=== PATIENT | female | born 1950 | race Caucasian/White ===

== ENCOUNTER → 2016-08-06 16:54 | Outpatient (CLI) | payer MEDICARE, OTHER ==
[2011-10-29 09:17] VITALS: BMI 25.8
== END | disposition home or self-care (01) ==
LOC: D.MAMMO 08:00
DX: Z12.31 Encounter for screening mammogram for malignant neoplasm of breast (principal)

== ENCOUNTER → 2016-09-06 10:39 | Outpatient (CLI) | payer MEDICARE, OTHER ==
[2011-10-29 09:17] VITALS: BMI 25.8
[2016-09-06 11:18] LABS: ANION GAP 11.1 mmol/L (8-16); CALCIUM 9.2 mg/dL (8.5-10.1); CARBON DIOXIDE 28.8 mmol/L (21.0-32.0); CREATININE - SERUM 1.2 mg/dL (0.6-1.3); POTASSIUM - SERUM 4.9 mmol/L (3.5-5.1)
== END | disposition home or self-care (01) ==
LOC: D.LAB 10:39 → D.MRI 11:30
PROVIDERS: Family Medicine
DX: R42 Dizziness and giddiness (principal)

== ENCOUNTER → 2016-12-02 15:00 | Outpatient (CLI) | payer MEDICARE, OTHER ==
[2011-10-29 09:17] VITALS: BMI 25.8
[~2016-12-02 15:00] MED LIST: AVAPRO300 MG PO; CYMBALTA60 MG PO; DEXILANT60 MG PO; DURAGESIC1 PATCH .7 TRANSDERM; FUROSEMIDE20 MG PO; INSULIN PUMP; PEPCID20 MG PO; PLAVIX75 MG PO; SYNTHROID175 MCG PO; VALIUM5 MG PO; VITAMIN D31000 UNI2 PO
[2016-12-03 14:54] VITALS: BMI 25.7
== END | disposition home or self-care (01) ==
LOC: D.US 15:00
DX: I65.23 Occlusion and stenosis of bilateral carotid arteries (principal)

== ENCOUNTER → 2016-12-03 13:32 | Outpatient (CLI) | payer MEDICARE, OTHER ==
[~2016-12-03] VITALS: Ht 160 cm; Wt 65.9 kg
[2016-12-03 14:54] VITALS: Ht 160 cm; Wt 65.9 kg
--- NOTE | 2016-12-03 14:59 | NUR ---
IV SITED IN LEFT HAND WITH #24 GAUGE PER MELANIA IYER, ATTEMPT X 2. RECLAST INFUSION EXPLAINED AND BEGUN.
--- NOTE | 2016-12-03 15:56 | NUR ---
RECLAST INFUSION COMPLETED. PT TOLERATED WELL. IV D/C'D CATH INTACT.
--- NOTE | 2016-12-03 15:57 | NUR ---
D/C INSTRUCTIONS EXPLAINED TO PT, WELL DRUG INFO SHEET FOR RECLAST. PT D/C'D HOME AMBULATORY, ALERT, CHEERFUL DEMEANOR.
== END | disposition home or self-care (01) ==
LOC: D.OPS 11-27 14:00
DX: M81.0 Age-related osteoporosis without current pathological fracture (principal)

== ENCOUNTER 2017-02-08 18:48 | Emergency (ER) | payer MEDICARE, OTHER ==
[2016-12-03 14:54] VITALS: BMI 25.7
[2017-02-08 19:21] LABS: BASOPHILS 0.2 % (0-2); EOSINOPHILS 1.1 % (0-7); HEMATOCRIT 36.2 % (36.0-48.0); HEMOGLOBIN 11.5 g/dL (12-16); IMMATURE GRANULOCYTES 0.2 % (0-5); LYMPHOCYTES 8.3 % (15-50); MCH 30.1 pg (26.0-34.0); MCHC 31.8 g/dL (31.0-37.0); MCV 94.8 fL (80.0-100.0); MEAN PLATELET VOLUME 10.6 fL (7.4-10.4); MONOCYTES 3.7 % (2-11); NEUTROPHILS 86.5 % (40-80); PLATELET COUNT 223 10x3/uL (130-400); RBC 3.82 10x6/uL (4.00-5.40); RDW 12.7 % (11.5-14.5); WBC 9.4 10x3/uL (4.8-10.8)
[2017-02-08 19:47] LABS: ALBUMIN 3.5 g/dL (3.4-5.0); ALKALINE PHOSPHATASE 78 U/L (46-116); ALT (SGPT) 18 U/L (10-68); BILIRUBIN - TOTAL 0.48 mg/dL (0.2-1.3); CALCIUM 9.7 mg/dL (8.5-10.1); CARBON DIOXIDE 22.6 mmol/L (21.0-32.0); CHLORIDE - SERUM 96 mmol/L (98-107); CHOL - HDL RATIO 2.5 ratio (2.3-4.1); CHOLESTEROL, TOTAL 141 mg/dL (0-200); CKMB 4.7 U/L (0.0-3.6); CREATINE KINASE 171 UL (21-215); CREATININE - SERUM 1.7 mg/dL (0.6-1.3); HDL CHOLESTEROL 57 mg/dL (32-96); LDL CHOLESTEROL 73 mg/dL (0-100); LDL-HDL RATIO 1.3 ratio (1.5-3.5); POTASSIUM - SERUM 5.5 mmol/L (3.5-5.1); PROTEIN - SERUM 6.9 g/dL (6.4-8.2); SODIUM 130 mmol/L (136-145); TRIGLYCERIDE 57 mg/dL (30-200); TROPONIN-I 0.022 ng/mL (0.000-0.060); UREA NITROGEN 35 mg/dL (7-18); eGFR NON AFRICAN AMERICAN 32 mL/min (90-120)
[2017-02-08 19:52] LABS: CALC OSMOLALITY 295 mosm/kg (275-300); GLUCOSE 581 mg/dL (74-106)
== END 2017-02-08 22:39 | disposition home or self-care (01) ==
LOC: D.ER 18:48
PROVIDERS: Emergency Medicine
DX: I20.8 Other forms of angina pectoris (principal); E16.2 Hypoglycemia, unspecified; K59.03 Drug induced constipation; T40.605A Adverse effect of unspecified narcotics, initial encounter; Y92.029 Unspecified place in mobile home as the place of occurrence of the external cause; I44.4 Left anterior fascicular block

== ENCOUNTER 2017-07-21 11:23 | Inpatient (IN) | payer MEDICARE, OTHER ==
[~2017-07-21] VITALS: Ht 160 cm; Wt 66.6 kg
--- NOTE | ~2017-07-21 | HEMODYNAMI ---
PATIENT:RAYMOND KIM MEDICAL RECORD: [id number] : 46 [id number] ADMISSION DATE: 07/21/17 Generatedon:07/23/201713:19 Patient name: RAYMOND KIM Patient #: [id number] SSN: : 1950 Date of study: 07/23/2017 Page: Of Hemodynamic Procedure Report Patient Data Patient Demographics Procedure consent was obtained First Name: RAYMOND Gender: Female Last Name: JUDY : 1950 [facility] Initial: SAQIB Age: 67 year(s) Patient #: [id number] Race: Unknown Additional ID: [id number] Contact details Address: [address] [place] [address] [address] [place] [facility] Zip code: [address] Past Medical History Allergies Allergen Reaction Date Comments Reported Penicillins 07/23/2017 Other allergy 07/23/2017 Pratamine, pravachol, persantin, bactrim, novolog Admission Admission Data Admission Date: 07/21/2017 Admission Time: 17:33 Room #: D.2134 Procedure Procedure Types Cath Procedure Diagnostic Procedure LHC LHC w/Coronaries w/Grafts Sedation Charges Moderate Sedation up to 15 minutes PCI Procedure AMI/SVG/HISTORIC SITES SUPERVISOR PTCA or Stent SVG-BMS/NIKO Initial Peripheral Cath Diagnostic Procedure Cath Peripheral Renal Arteriogram Procedure Description Procedure Date Procedure Date: 07/23/2017 Procedure Start Time: 12:53 Procedure End Time: 13:15 Procedure Staff Name Function Jean Claude Danielle MD Performing Physician Hanny Cheatham RT Monitor Brittani Smith RN Nurse Keny Shabazz RT Scrub Ned Casey RN Nurse Procedure Data Cath Procedure Fluoroscopy Diagnostic fluoroscopy Total fluoroscopy Time: 4.2 time: 4.2 min min Diagnostic fluoroscopy Total fluoroscopy dose: 453 dose: 453 mGy mGy Contrast Material Contrast Material Type Amount (ml) Isovue 300 101 Entry Location Entry Primary Successful Side Size Upsize Upsize Entry Closure Succes sful Closure Location (Fr) 1 (Fr) 2 (Fr) Remarks Device Remarks Femoral Right 5 Fr Exoseal artery Estimated blood loss: 10 ml Diagnostic catheters Device Type Used For End Catheter Placement MULTIPACK Pigtail 5 Fr LV Angiography catheter MULTIPACK JL 4.0 5Fr Left Coronary catheter Angiography DIAGNOSTIC JL 3.5 5Fr Left Coronary catheter ([id number]) Angiography MULTIPACK 3DRC 5Fr Internal mammary catheter arteriography MULTIPACK 3DRC 5Fr Right Coronary catheter Angiography DIAGNOSTIC AR 2 MOD 5 Fr SVG Angiography catheter ([id number]) DIAGNOSTIC AR 2 MOD 5 Fr SVG Angiography catheter ([id number]) MULTIPACK 3DRC 5Fr Renal catheter arteriography without flush -selective Procedure Complications No complications Procedure Medications Medication Administration Route Dosage Oxygen etCO2 Nasal cannula 2 l/min Phenergan 25 mg Heparin Flush Bag (1000units/500ml NS) 0.9% NaCl I.V. 100 ml/hr Fentanyl I.V. 50 mcg Versed I.V. 1 mg Fentanyl I.V. 50 mcg Versed I.V. 1 mg Zofran I.V. 4 mg Heparin Bolus I.V. 4000 units Hemodynamics Rest Heart Rate: 75 (bpm) Snapshots Pre Cath Intra NCS Post Cath Vital Signs Time Heart Resp SPO2 etCO2 NIBP (mmHg) Rhythm Pain Sedation Rate (ipm) (%) (mmHg) Status Level (bpm) 12:36:42 83 17 98 0 149/59(111) NSR 0 (11) 10(A) , No pain 12:41:32 86 16 100 33.1 150/56(100) NSR 0 (11) 10(A) , No pain 12:46:21 70 18 100 33.1 145/50(93) NSR 0 (11) 10(A) , No pain 12:51:06 69 16 100 21 129/49(96) NSR 0 (11) 10(A) , No pain 12:55:51 77 17 97 0 114/44(81) NSR 0 (11) 9(A) , No pain 13:00:34 67 14 100 30.1 115/51(83) NSR 0 (11) 9(A) , No pain 13:05:18 73 15 100 25.5 115/47(86) NSR 0 (11) 9(A) , No pain 13:10:01 68 16 100 15.8 123/50(86) NSR 0 (11) 9(A) , No pain 13:14:45 64 15 100 28.5 111/48(87) NSR 0 (11) 9(A) , No pain Medications Time Medication Route Dose Verified Delivered Reason Notes Effectiveness by by 12:41:51 Oxygen etCO2 2 Jean Claude Marino Per physician Nasal l/min Shashi Casey RN cannula 12:42:18 Phenergan I M 25 mg Jean Claude Peter for nausea Shashi Smith RN 12:42:55 Heparin Flush Jean Claude Marino Bag Shashi Casey RN (1000units/500ml NS) 12:43:22 0.9% NaCl I.V. 100 Jean Claude Marino Per physician ml/hr Shashi Casey RN 12:52:45 Fentanyl I.V. 50 Jean Claude Goy for sedation mcg Shashi Casey RN 12:52:51 Versed I.V. 1 mg Jean Claude Marino for sedation Shashi Casey RN 12:55:32 Fentanyl I.V. 50 Jean Claude Marino for sedation mcg Shashi Casey RN 12:55:35 Versed I.V. 1 mg Jean Claude Marino for sedation Shashi Casey RN 13:04:18 Heparin Bolus I.V. 4000 Jean Claude Goy for units Shashi Casey RN anticoagulation 13:13:40 Zofran I.V. 4 mg Jean Claude Marino for nausea Shashi Casey operational intelligence analyst Log Time Note 12:14:37 Hanny Counts RT(R) sent for patient. Start room use. 12:14:38 Time tracking: Regular hours (M-F 7:00 - 5:00) 12:14:42 Plan of Care:Hemodynamics will remain stable., Cardiac rhythm will remain stable., Comfort level will be maintained., Respiratory function will remain adequate., Patient/ family verbilizes understanding of procedure., Procedure tolerated without complication., Recovers from procedure without complications.. 12:30:05 Patient received from PCU to CCL 1 Alert and oriented. Tansferred to table in Supine position. 12:30:06 PATIENT ARRIVED TO ART THERAPIST WITH NAUSEA/VOMITTING. 12:35:38 Vital chart was started 12:37:11 Warm blankets applied, and merlin hugger turned on for patient comfort. 12:37:11 Correct patient and procedure confirmed by team. 12:37:13 Signed procedure consent form obtained from patient. 12:37:13 ECG and BP/O2 sat monitors applied to patient. 12:37:14 Full Disclosure recording started 12:39:42 Baseline sample Acquired. 12:39:44 Rhythm: sinus rhythm 12:41:51 Oxygen 2 l/min etCO2 Nasal cannula was administered by Ned Casey RN; Per physician; 12:42:18 Phenergan 25 mg I M was administered by Brittani Smith RN; for nausea; 12:42:55 Heparin Flush Bag (1000units/500ml NS) was administered by Ned Casey RN; ; 12:43:22 0.9% NaCl 100 ml/hr I.V. was administered by Ned Casey RN; Per physician; 12:43:28 H&P Date Dictated: 07/21/2017 Within 30 days and on chart.. 12:43:29 Pre-procedure instructions explained to patient. 12:43:30 Pre-op teaching completed and patient verbalized understanding. 12:43:32 Family in patients room. 12:43:55 Patient NPO since Midnight. 12:44:31 Patient allergic to Penicillins 12:45:20 Patient allergic to Other allergyPratamine, pravachol, persantin, bactrim, novolog 12:45:26 Is the patient allergic to Iodine/contrast media? No. 12:45:28 Is patient on blood thinner?Yes 12:45:30 ACC The patient was administered the following blood thiners within the last 24 hours: ACCPlavix 12:45:32 Patient diabetic? Yes. 12:45:33 If diabetic: On Metformin? No 12:45:42 IDDM 12:45:47 Previous problem with sedation/anesthesia? No ? 12:45:50 Snore? Yes 12:45:51 Sleep apnea? No 12:45:52 Deviated septum? No 12:45:53 Opens mouth fully? Yes 12:45:53 Sticks out tongue? Yes 12:45:55 Airway obstruction? No ? 12:45:58 Dentures? Yes in 12:46:01 Pre procedure: right dorsailis pedis pulse 2+ Normal; easily identifiable; not easily obliterated 12:46:04 Patient pain scale 0/10 ?. 12:47:42 IV LEFT ARM INFILTRATED. 12:48:26 IV started by Ned Casey RN inleft forearm with a 22 gauge IV catheter with 0.9% NaCl at KVO. 12:48:41 Lab results completed and on chart. 12:48:44 Right groin area was prepped with chlora-prep and draped in sterile fashion 12:48:46 Alarms reviewed by R. N. 12:48:46 Sharps counted by scrub and verified by R.N. 12:49:11 Use device set Femoral Dx 12:49:12 ACIST Syringe (70327) opened to sterile field. 12:49:13 Bag Decanter (2002S) opened to sterile field. 12:49:13 Medline Cath Pack ([id number]) opened to sterile field. 12:49:14 DIAGNOSTIC WIRE .035 260cm J wire (041330) opened to sterile field. 12:49:15 ACIST Hand Control (84775) opened to sterile field. 12:49:15 ACIST Manifold (27907) opened to sterile field. 12:49:16 DIAGNOSTIC Multipack 5Fr catheter set (IC5495) opened to sterile field. 12:49:16 Tegaderm 4 x 4 (1626W) opened to sterile field. 12:49:17 PERCUTANEOUS ENTRY 19GA needle opened to sterile field. 12:51:56 Final Timeout: patient, procedure, and site verified with staff and physician. All members of the team are in agreement. 12:51:58 Right groin site verified by team. 12:52:00 Physical assessment completed. ASA score P 2 - A patient with mild systemic disease as per Jean Claude Danielle MD. 12:52:03 Sedation plan: IV Moderate Sedation Medication:Versed, Fentanyl 12:52:06 Zero performed for pressure channel P1 12:52:45 Fentanyl 50 mcg I.V. was administered by Ned Casey RN; for sedation; 12:52:51 Versed 1 mg I.V. was administered by Ned Casey RN; for sedation; 12:53:10 Procedure started. 12:53:13 Local anesthetic to right femoral artery with Lidocaine 2% by Jean Claude Danielle MD.INITIAL ACCESS ONLY 12:53:23 A 5 Fr sheath was inserted into the Right Femoral artery 12:53:46 A MULTIPACK Pigtail 5 Fr catheter was advanced over the wire and used for LV Angiography. 12:54:41 LV gram done using BURDEN 12:54:43 Injector settings: Ml/sec: 10, Volume: 20, 12:54:51 EF : 60 % 12:54:52 Catheter removed. 12:55:03 A MULTIPACK JL 4.0 5Fr catheter was advanced over the wire and used for Left Coronary Angiography. removed, unable to cannulate 12:55:32 Fentanyl 50 mcg I.V. was administered by Ned Casey RN; for sedation; 12:55:35 Versed 1 mg I.V. was administered by Ned Casey RN; for sedation; 12:55:35 Catheter removed. 12:55:47 SHEATH Prelude 5Fr 0.035 (WUE-6I-69-035) opened to sterile field. 12:56:00 A DIAGNOSTIC JL 3.5 5Fr catheter (444297V) was advanced over the wire and used for Left Coronary Angiography. 12:57:00 Catheter removed. 12:57:14 A MULTIPACK 3DRC 5Fr catheter was advanced over the wire and used for Internal mammary arteriography. to LAD 12:58:33 A MULTIPACK 3DRC 5Fr catheter was advanced over the wire and used for Right Coronary Angiography. 12:58:37 Catheter removed. 13:00:16 A DIAGNOSTIC AR 2 MOD 5 Fr catheter (145686J) was advanced over the wire and used for SVG Angiography.to Diag 13:00:29 A DIAGNOSTIC AR 2 MOD 5 Fr catheter (872000V) was advanced over the wire and used for SVG Angiography.to RCA 13:01:40 Catheter removed. 13:01:46 Use device set TAUTH PCI 13:01:49 INFLATOR Merit BasixCompak ([id number]) opened to sterile field. 13:01:58 CHOICE PT Extra Support 182cm wire ([id number]) opened to sterile field. 13:02:02 SHEATH Prelude 6Fr 0.035 (CXI-6V-86-035) opened to sterile field. 13:02:33 GUIDE 6FR AR 1.0 SH catheter ([id number]) opened to sterile field. 13:03:55 6 Fr AR 1.0 SH guide catheter was inserted over the wire 13:04:18 Heparin Bolus 4000 units I.V. was administered by Ned Casey RN; for anticoagulation; 13:04:31 CHOICE PT ES wire advanced. 13:05:55 Place stent Inflation Number: 1 A NAEEM RX 3.0 x 12 stent ([id number]) was prepped and advanced across the Aorta Left -> 1st Diag. The stent was deployed at 17 LUIZ for 0:10 (min:sec). 13:06:09 Stent catheter was removed intact over wire. 13:06:10 Wire removed. 13:06:10 Guide catheter removed. 13:06:38 A MULTIPACK 3DRC 5Fr catheter was advanced over the wire and used for Renal arteriography without flush -selective. 13:06:57 EXOSEAL 6Fr (EX600) opened to sterile field. 13:07:55 Catheter removed. 13:08:02 Sheath removed intact; hemostasis achieved with Exoseal to the Right Femoral artery. 13:08:49 Procedure ended.(Physican Out) 13:08:56 Fluoroscopy time 04.20 minutes. 13:08:59 Flurop Dose total: 453 13:08:59 Fluoroscopy dose: 453 mGy 13:09:59 Contrast amount:Isovue 300 101ml. 13:10:00 Sharps counted by scrub and verified by R.N. 13:10:02 Insertion/operative site no bleeding no hematoma. 13:10:05 Post-op/insertion site Right Femoral artery dressed using a 4 x 4 and Tegaderm. 13:10:13 Post right femoral artery:stable, clean and dry 13:10:15 Post Procedure Pulses reassessed and unchanged 13:10:24 Post-procedure physical assessment completed. ASA score P 2 - A patient with mild systemic disease as per Jean Claude Danielle MD. 13:10:26 Post procedure rhythm: unchanged. 13:10:28 Estimated blood loss: 10 ml 13:10:30 Post procedure instruction explained to patient.Patient verbalizes understanding. 13:10:30 Patient needs reinforcement of post procedure teaching. 13:10:45 Procedure type changed to Cath procedure, Diagnostic procedure, LHC, LHC w/Coronaries w/Grafts, Sedation Charges, Moderate Sedation up to 15 minutes, PCI procedure, AMI/SVG/HISTORIC SITES SUPERVISOR PTCA or Stent, SVG-BMS/NIKO Initial, Peripheral Cath Diagnostic Procedure, Cath Peripheral, Renal Arteriogram 13:11:30 Procedure Complication : No complications 13:11:33 See physician's report for complete and final results. 13:13:40 Zofran 4 mg I.V. was administered by Ned Casey RN; for nausea; 13:13:53 IV CATHETER 22g opened to sterile field. 13:14:44 Tegaderm 4 x 4 (1626W) opened to sterile field. 13:15:10 Procedure and supply charges have been captured, reviewed, submitted and are correct. 13:15:11 Vital chart was stopped 13:15:13 Report given to PCU. 13:15:17 Patient transfered to PCU with Bed. 13:15:37 Procedure ended. 13:15:37 Full Disclosure recording stopped 13:15:40 End room use (Document Last) Intervention Summary Intervention Notes Time ActionType Lesion and Equipment Used Action# Pressure Duration Attributes 13:05:55 Place stent Aorta Left NAEEM RX 3.0 x 1 17 00:10 -> 1st Diag 12 stent ([id number]) Device Usage Item Name Manufacture Quantity Catalog Number Hospital Part Current Minimal Lot# / Charge Number Stock Stock Serial# Code ACIST Syringe Acist 1 41888 898467 727701 [id number] 20 (20771) Medical Systems Inc Bag Decanter Microtek 1 2001S 718220 82632 010130 5 (2001S) Medical Inc. Medline Cath Cardinal 1 [id number] 871141 20139 330632 5 Pack Health ([id number]) DIAGNOSTIC WIRE [place] 1 572570 737438 603997 196783 30 .035 260cm J wire (390464) ACIST Hand Acist 1 34055 894193 756387 494566 5 Control (49628) Medical Systems Inc ACIST Manifold Acist 1 80957 795717 593374 237831 5 (54523) Medical Systems Inc DIAGNOSTIC Cardinal 1 EP7540 939496 12408 363966 30 Multipack 5Fr Health catheter set (KT9649) Tegaderm 4 x 4 3M 2 1626W 906515 057611 292453 5 (1626W) PERCUTANEOUS Cook Medical 1 R98355 046060 973975 5 ENTRY 19GA needle MULTIPACK Cardinal 1 005562 5 Pigtail 5 Fr Health catheter MULTIPACK JL Cardinal 1 587482 5 4.0 5Fr Health catheter SHEATH Prelude Merit 1 TQO-7O-09-035 660263 146229 428156 5 5Fr 0.035 Medical (JWT-2Q-61-035) DIAGNOSTIC JL Cardinal 1 [id number] 679601 045489 548542 5 3.5 5Fr Health catheter (554667C) MULTIPACK 3DRC Cardinal 1 942262 5 5Fr catheter Health DIAGNOSTIC AR 2 Cardinal 1 [id number] 322808 388961 492702 20 MOD 5 Fr Health catheter (535394N) INFLATOR Merit Merit 1 WI2842 176211 721116 333039 15 Xiimo Medical (AC7493) CHOICE PT Extra [place] 1 [id number] 510733 807614 436801 5 Support 182cm Scientific wire ([id number]) SHEATH Prelude Merit 1 FXB-8D-36-35 262870 7896865 233042 5 6Fr 0.035 Medical (OOH-2O-54035) GUIDE 6FR AR Medtronic 1 [id number] 899530 31623 887104 1 1.0 SH catheter ([id number]) NAEEM RX 3.0 x Medtronic 1 [id number] 880694 9516568 913030 5 [id number] 12 stent ([id number]) EXOSEAL 6Fr Cardinal 1 EX600 099595 499980 144788 10 (EX600) Health IV CATHETER 22g B. Snell 1 [id number] 683885 374898 907245 5 Signature Audit [place] Stage Time Signature Unsigned Intra-Procedure 07/23/2017 Hanny 1:19:07 PM Counts RT(R) Signatures Monitor : Hanny Signature : Counts RT Date : Time : [place] [id number] [place] [address]
--- NOTE | ~2017-07-21 | CN ---
PATIENT NAME:RAYMOND TORRES MEDICAL RECORD: [id number] : 46 LOCATION:[facility].2309 ADMIT DATE: 07/24/17 ACCOUNT: [id number] CONSULTING PHYSICIAN: KEISHA NUNN MD REFERRING PHYSICIAN: SCOTTIE ZHANG DO DATE OF CONSULTATION: 07/21/2017 CARDIOLOGY CONSULT DIAGNOSES: 1. Shortness of breath. 2. Pulmonary edema. 3. Hypertension. 4. Coronary artery disease. 5. Hyperlipidemia. HISTORY: Mrs. Torres presents with shortness of breath, found to have pulmonary edema, has been diuresed. She feels better and is stable from respiratory standpoint. Her last echocardiogram was in December of 2016, revealing a normal ejection fraction and no significant valvular disease. No real reason for congestive heart failure. Her blood pressure was in 190-200 range. She is on Avapro and Lasix for blood pressure. She takes p.r.n. clonidine but has not been taking it recently. She was given hydralazine 25 mg. Her systolic blood pressure is now in 150-160 range. PHYSICAL EXAMINATION: GENERAL APPEARANCE: Well-nourished, well-developed, appears stated age. Level of distress, comfortable. PSYCHIATRIC: Mental status, alert, normal affect. Orientation, oriented to time, place and person. EYES: Lids and conjunctiva, noninjected. No discharge, no pallor. ENT: Lips, teeth, gums, normal dentition. Oropharynx, no cyanosis, no pallor. NECK: Carotid arteries, bilateral normal upstroke, no bruits, no thrills. JUGULAR VEINS: No jugular venous pressure or distention. CERVICAL LYMPH NODES: Nontender, nonenlarged. THYROID: Not enlarged. Nontender. No nodules. LUNGS: Respiratory effort, unlabored. CHEST: Normal curvature. No thoracic deformity. No chest wall tenderness. Percussion, resonant. Auscultation, clear. No wheezes, no rales, no rhonchi. CARDIOVASCULAR: Precordial exam, nondisplaced. No heaves or pericardial thrills. Rate and rhythm, regular. Heart sounds, normal S1, normal S2. No S3, no gallop, no rub. Systolic murmur, not heard. Diastolic murmur, not heard. EXTREMITIES: No cyanosis, no edema. Peripheral pulses, full and equal in all extremities, except as noted. No bruits appreciated. ABDOMEN: Soft, nondistended. Normal aorta. No bruit. Nontender. No masses. Liver, nontender, no hepatomegaly. Spleen, nontender, no splenomegaly. MUSCULOSKELETAL: No joint tenderness. No joint swelling. No erythema. NEUROLOGICAL: Normal gait, normal strength, normal tone. SKIN: Warm and dry. OVERALL IMPRESSION: Pulmonary edema and shortness of breath. She really has no reason for heart failure other than out of control hypertension. We will add hydralazine at 50 mg b.i.d. Repeat the echocardiogram to make sure her ejection fraction is still normal. She has no ST-T abnormalities and no chest pain. I do not think that this is ischemic heart disease. I do not think she needs CONSULT REPORT [id number] RAYMOND TORRES cardiac catheterization at this time. We will see the results of the hydralazine added for the blood pressure in the echo. TRANSINT:[id number] Voice Confirmation ID: [id number] DOCUMENT ID: [id number] KEISHA NUNN MD at 1006 CC: [id number] DICTATION DATE: 07/21/17 1628 PRACTICING DERMATOLOGIST: 07/21/17 1756 ADM IN [place] [id number] [place] [address]
--- NOTE | ~2017-07-21 | EC ---
PATIENT:RAYMOND KIM DATE OF SERVICE: 07/21/17 SEX: F MEDICAL RECORD: [id number] DATE OF : 46 LOCATION:[facility] D.230 AGE OF PATIENT: 67 ADMISSION DATE: 07/24/17 REFERRING PHYSICIAN: INTERPRETING PHYSICIAN: KEISHA DANIELLE MD ECHOCARDIOGRAM REPORT ECHO CHARGES 4 ECHO COMPLETE Date: 07/22 CLINICAL DIAGNOSIS: SOB HX CAD/STENT/CABG/HTN ECHOCARDIOGRAPHIC MEASUREMENTS (adult normal given) AC root (d.<3.7cm) 3.1 cm LV Septum d (<1.2 cm> 1.4 cm Valve Excursion 1.7 cm LV Septum (systole) 1.7 cm Left Atria (s.<4.0cm> 4.5 cm LVPW d(<1.2cm) 1.7 cm RV (d.<2.3cm) 3.9 cm LVPW (sytole) 1.8 cm LV diastole(<5.6CM) 5.0 cm MV E-F(>70mm/sec) cm LV systole 3.6 cm LVOT Diameter 1.4 cm MV exc.(>10mm) 1.5 cm Est.ejection fraction (50-75%) % DOPPLER: LVIT cm/sec A 89.0 cm/sec E 159 cm/sec LA cm/sec RVSP 46 mmHg LVOT 116 cm/sec AOP1/2T m/s Asc. Ao 162 cm/sec RVOT 108 cm/sec RA cm/sec PA 146 cm/sec AV Gradient Peak 10.50mmHg AV Mean 4.72 mmHg AV Area 2.7 cm MV Gradient Peak 9.14 mmHg MV Mean 3.02 mmHg MV Area cm COMMENTS: Avionics Technician: Cassie CORDOBA Multimedia Project Manager: 1 Dr. Danielle TAPE# PACS Pericardial Effusion N DATE OF SERVICE: 07/22/2017 FINDINGS: 1. Left ventricular chamber size is within normal limits. Left ventricular systolic function is normal. Overall ejection fraction estimated 60%. 2. Left atrium is enlarged at 4.5 cm. Right atrium and right ventricular chamber sizes are as well mildly dilated. 3. Valvular structures have normal structure and motion. 4. Doppler interrogation reveals mild mitral regurgitation, mild tricuspid regurgitation. No other valvular insufficiency or stenosis. Pulmonary systolic ECHOCARDIOGRAM REPORT [id number] RAYMOND KIM pressure is mildly elevated estimated at 46 mmHg. 5. No evidence of pericardial effusion or left ventricular thrombus. TRANSINT:[id number] Voice Confirmation ID: [id number] DOCUMENT ID: [id number] KEISHA DANIELLE MD at 1006 CC: [id number] DICTATION DATE: 07/23/17 0957 YARD COUPLER: 07/23/17 1240 ADM IN [place] [id number] [place] [id number]
--- NOTE | ~2017-07-21 | OP ---
PATIENT NAME: RAYMOND KIM MEDICAL RECORD: [id number] :46 LOCATION:D.[facility] D.2309 ADMISSION DATE:07/24/17 SURGEON: KEISHA NUNN MD DATE OF OPERATION: 07/23/2017 PROCEDURES: 1. Left heart catheterization. 2. Selective coronary angiography. 3. Left ventriculogram. 4. Vein graft angiography. 5. FREEMAN angiography. 6. PTCA and stent of vein graft to left circumflex. PROCEDURE IN DETAIL: After informed consent was obtained and after detailed explanation of risks, benefits as well as alternative therapies, the patient elected to proceed with angiogram and angioplasty. The right femoral area was prepped and draped in normal sterile fashion. The right femoral artery was cannulated via modified Seldinger technique with placement of a 6-Mongolian sheath. All catheters exchanged through this sheath. FINDINGS: The left ventriculogram was performed in standard 30-degree BURDEN view, reveals good cardiac wall motion throughout all segments. Overall ejection fraction estimated 60%. SELECTIVE CORONARY ANGIOGRAPHY: 1. Left main is with no significant angiographic disease. 2. Left anterior descending is totally occluded. 3. There is a large circumflex. Ramus intermedius is nongrafted. This has a 99% stenosis at the ostium. 4. Right coronary is totally occluded. 5. FREEMAN to the LAD is widely patent. Distal LAD is widely patent. 6. Vein graft to circumflex is widely patent; however, there is a 70% to 80% stenosis in the mid shaft. 7. Vein graft to the right coronary is totally patent. Distal right coronary is totally patent. PTCA AND STENT OF THE VEIN GRAFT TO THE LEFT CIRCUMFLEX: The stent used was a 3.0 x 12 mm [place]ropsey. Result was 0% residual stenosis. OVERALL IMPRESSION: Successful PTCA and stent of the vein graft to the left circumflex going from 80% initial stenosis to 0% residual. PLAN: Plan for PTCA and stent of the kiana ramus intermedius in the a.m. ADDENDUM: BILATERAL SELECTIVE RENAL ANGIOGRAPHY: Right renal artery is a solitary artery off the aorta with no significant pressure damping at the ostia. No renal artery stenosis throughout. The left renal artery is a solitary artery off the aorta with no significant pressure damping. No renal artery stenosis. OVERALL IMPRESSION: No renal artery stenosis is present. TRANSINT:[id number] Voice Confirmation ID: [id number] DOCUMENT ID: [id number] OPERATIVE REPORT [id number] RAYMOND KIM JEFFREY MD at 1006 CC: [id number] DICTATION DATE: 07/23/17 1311 ORTHOPEDIC RADIOLOGIC TECHNOLOGIST: 07/23/17 1427 ADM IN [facility] [address] [place] [id number]
[2017-07-21 12:24] LABS: BASOPHILS 0.3 % (0-2); EOSINOPHILS 5.2 % (0-7); HEMOGLOBIN 10.5 g/dL (12-16); IMMATURE GRANULOCYTES 0.2 % (0-5); LYMPHOCYTES 27.8 % (15-50); MCH 29.7 pg (26.0-34.0); MCHC 31.8 g/dL (31.0-37.0); MCV 93.2 fL (80.0-100.0); MEAN PLATELET VOLUME 10.2 fL (7.4-10.4); MONOCYTES 9.1 % (2-11); NEUTROPHILS 57.4 % (40-80); PLATELET COUNT 257 10x3/uL (130-400); RBC 3.54 10x6/uL (4.00-5.40); RDW 13.4 % (11.5-14.5); WBC 5.9 10x3/uL (4.8-10.8)
[2017-07-21 13:00] LABS: ALBUMIN 3.3 g/dL (3.4-5.0); ALKALINE PHOSPHATASE 110 U/L (46-116); ALT (SGPT) 28 U/L (10-68); BILIRUBIN - TOTAL 0.48 mg/dL (0.2-1.3); CALCIUM 9.4 mg/dL (8.5-10.1); CARBON DIOXIDE 25.2 mmol/L (21.0-32.0); CHLORIDE - SERUM 102 mmol/L (98-107); CREATINE KINASE 99 UL (21-215); CREATININE - SERUM 1.3 mg/dL (0.6-1.3); POTASSIUM - SERUM 3.8 mmol/L (3.5-5.1); PRO BNP 2445 pg/mL (0-125); PROTEIN - SERUM 7.4 g/dL (6.4-8.2); SODIUM 138 mmol/L (136-145); UREA NITROGEN 28 mg/dL (7-18); eGFR NON AFRICAN AMERICAN 43 mL/min (90-120)
[2017-07-21 13:02] LABS: CALC OSMOLALITY 286 mosm/kg (275-300); GLUCOSE 188 mg/dL (74-106); TROPONIN-I < 0.017 ng/mL (0.000-0.060)
[2017-07-21 21:00] VITALS: BP 179/58
[2017-07-21] MEDS ORDERED: CRANBERRY 400 M1 TA1 PO (22:11)
[2017-07-21] MEDS ORDERED: CLARITIN 10 MG10 MG PO (22:11)
[2017-07-21] MEDS ORDERED: MIRALAX17 GM PO (22:11)
[2017-07-21] MEDS ORDERED: CATAPRES0.2 MG PO (22:11)
[2017-07-21] MEDS ORDERED: REPATHA SY140 MG/1 M SC (22:12)
[2017-07-21] MEDS ORDERED: MULTIPLE VITAMI1 TA1 PO (22:12)
[2017-07-21] MEDS ORDERED: RESTASIS EYE DR30 EA EACH EYE (22:12)
[2017-07-21 22:57] LABS: CKMB 2.1 U/L (0.0-3.6); CREATINE KINASE 96 UL (21-215); TROPONIN-I < 0.017 ng/mL (0.000-0.060)
[2017-07-21 23:00] VITALS: BMI 25.7
[2017-07-22 00:58] VITALS: BP 144/42
[2017-07-22 04:00] VITALS: BP 114/20
[2017-07-22 05:45] LABS: BASOPHILS 0.4 % (0-2); EOSINOPHILS 6.7 % (0-7); HEMATOCRIT 30.1 % (36.0-48.0); HEMOGLOBIN 9.6 g/dL (12-16); IMMATURE GRANULOCYTES 0.2 % (0-5); LYMPHOCYTES 29.5 % (15-50); MCH 29.6 pg (26.0-34.0); MCHC 31.9 g/dL (31.0-37.0); MCV 92.9 fL (80.0-100.0); MEAN PLATELET VOLUME 10.3 fL (7.4-10.4); MONOCYTES 10.4 % (2-11); NEUTROPHILS 52.8 % (40-80); PLATELET COUNT 258 10x3/uL (130-400); RBC 3.24 10x6/uL (4.00-5.40); RDW 13.5 % (11.5-14.5); WBC 5.4 10x3/uL (4.8-10.8)
[2017-07-22 06:32] LABS: ALBUMIN 2.9 g/dL (3.4-5.0); ALKALINE PHOSPHATASE 93 U/L (46-116); ALT (SGPT) 24 U/L (10-68); CALC OSMOLALITY 288 mosm/kg (275-300); CHLORIDE - SERUM 106 mmol/L (98-107); CKMB 1.8 U/L (0.0-3.6); CREATINE KINASE 74 UL (21-215); CREATININE - SERUM 1.5 mg/dL (0.6-1.3); POTASSIUM - SERUM 3.7 mmol/L (3.5-5.1); PROTEIN - SERUM 6.3 g/dL (6.4-8.2); SODIUM 142 mmol/L (136-145); TROPONIN-I < 0.017 ng/mL (0.000-0.060); UREA NITROGEN 32 mg/dL (7-18); eGFR NON AFRICAN AMERICAN 36 mL/min (90-120)
[2017-07-22 06:33] LABS: GLUCOSE 77 mg/dL (74-106)
[2017-07-22 07:46] VITALS: BP 128/42
[2017-07-22 10:36] VITALS: BP 122/48
[2017-07-22 16:15] VITALS: BP 114/38
[2017-07-22 20:00] VITALS: BP 132/43
[2017-07-23] VITALS: BP 130/35
[2017-07-23 04:00] VITALS: BP 123/37
[2017-07-23 05:12] LABS: BASOPHILS 0.3 % (0-2); EOSINOPHILS 7.3 % (0-7); HEMATOCRIT 30.3 % (36.0-48.0); HEMOGLOBIN 9.5 g/dL (12-16); IMMATURE GRANULOCYTES 0.2 % (0-5); LYMPHOCYTES 35.8 % (15-50); MCH 29.2 pg (26.0-34.0); MCHC 31.4 g/dL (31.0-37.0); MCV 93.2 fL (80.0-100.0); MONOCYTES 8.8 % (2-11); NEUTROPHILS 47.6 % (40-80); PLATELET COUNT 252 10x3/uL (130-400); RBC 3.25 10x6/uL (4.00-5.40); RDW 13.5 % (11.5-14.5); WBC 5.9 10x3/uL (4.8-10.8)
[2017-07-23 05:33] LABS: ALBUMIN 2.9 g/dL (3.4-5.0); ANION GAP 14.7 mmol/L (8-16); BILIRUBIN - TOTAL 0.37 mg/dL (0.2-1.3); CALCIUM 8.7 mg/dL (8.5-10.1); CARBON DIOXIDE 24.3 mmol/L (21.0-32.0); CREATININE - SERUM 1.3 mg/dL (0.6-1.3); PROTEIN - SERUM 6.4 g/dL (6.4-8.2)
[2017-07-23 08:53] VITALS: BP 122/31
[2017-07-23 21:12] VITALS: BP 125/44
[2017-07-24] VITALS (19 sets, daily range): BP systolic 103–159; BP diastolic 28–89; Ht 160 cm; Wt 66.6 kg
[2017-07-24 04:28] LABS: BASOPHILS 0.1 % (0-2); EOSINOPHILS 0 % (0-7); HEMOGLOBIN 9.6 g/dL (12-16); IMMATURE GRANULOCYTES 0.7 % (0-5); LYMPHOCYTES 7.2 % (15-50); MCH 29.3 pg (26.0-34.0); MCV 97.6 fL (80.0-100.0); MEAN PLATELET VOLUME 10.4 fL (7.4-10.4); MONOCYTES 4.4 % (2-11); NEUTROPHILS 87.6 % (40-80); PLATELET COUNT 279 10x3/uL (130-400); RBC 3.28 10x6/uL (4.00-5.40); RDW 14.3 % (11.5-14.5); WBC 12.3 10x3/uL (4.8-10.8)
[2017-07-24 04:38] LABS: CALCIUM 8.9 mg/dL (8.5-10.1)
[2017-07-24 04:40] LABS: ANION GAP 20.5 mmol/L (8-16); CARBON DIOXIDE 14.2 mmol/L (21.0-32.0); CREATININE - SERUM 2.3 mg/dL (0.6-1.3); POTASSIUM - SERUM 5.7 mmol/L (3.5-5.1)
[2017-07-24 11:00] LABS: AMYLASE - SERUM 30 U/L (25-115)
[2017-07-24 11:01] LABS: LIPASE 35 U/L (73-393)
[2017-07-24 11:28] LABS: APPEARANCE CLEAR (CLEAR); COLOR YELLOW (YELLOW); NITRITE NEGATIVE (NEGATIVE); PROTEIN NEGATIVE (NEGATIVE); SPECIFIC GRAVITY 1.015 (1.005-1.020)
[2017-07-24 11:29] LABS: AMORPHOUS SEDIMENT <1+ /lpf (NONE SEEN); BACTERIA FEW /hpf (NONE SEEN); BILIRUBIN NEGATIVE (NEGATIVE); EPITHELIAL CELLS 0-5 /hpf (0-5); GLUCOSE 100 mg/dL (NEGATIVE); HYALINE CAST 0-5 /lpf (NONE SEEN); KETONE SMALL mg/dL (NEGATIVE); MUCUS <1+ /lpf (NONE SEEN); UROBILINOGEN NORMAL (NORMAL); WHITE CELLS - URINE RARE /hpf (0-5)
[2017-07-24 14:37] LABS: CALCIUM 8.9 mg/dL (8.5-10.1); CREATININE - SERUM 2.7 mg/dL (0.6-1.3)
[2017-07-24 14:38] LABS: ANION GAP 18.8 mmol/L (8-16); CARBON DIOXIDE 20.6 mmol/L (21.0-32.0); POTASSIUM - SERUM 4.4 mmol/L (3.5-5.1)
[2017-07-25] VITALS (23 sets, daily range): BP systolic 102–151; BP diastolic 38–410
[2017-07-25 04:12] LABS: BASOPHILS 0.1 % (0-2); EOSINOPHILS 0 % (0-7); HEMATOCRIT 27.8 % (36.0-48.0); HEMOGLOBIN 8.9 g/dL (12-16); IMMATURE GRANULOCYTES 0.4 % (0-5); LYMPHOCYTES 12.9 % (15-50); MCH 29.8 pg (26.0-34.0); MEAN PLATELET VOLUME 10.1 fL (7.4-10.4); MONOCYTES 6.9 % (2-11); NEUTROPHILS 79.7 % (40-80); RBC 2.99 10x6/uL (4.00-5.40); RDW 14.1 % (11.5-14.5); WBC 14.3 10x3/uL (4.8-10.8)
[2017-07-25 04:15] LABS: PLATELET COUNT 220 10x3/uL (130-400)
[2017-07-25 04:28] LABS: ALBUMIN 2.7 g/dL (3.4-5.0); BILIRUBIN - TOTAL 0.3 mg/dL (0.2-1.3); CALCIUM 8.1 mg/dL (8.5-10.1); CARBON DIOXIDE 23.9 mmol/L (21.0-32.0); CREATININE - SERUM 2.7 mg/dL (0.6-1.3); PHOSPHOROUS 3.7 mg/dL (2.5-4.9); PROTEIN - SERUM 5.7 g/dL (6.4-8.2)
[2017-07-25 04:30] LABS: ANION GAP 14.7 mmol/L (8-16); POTASSIUM - SERUM 3.6 mmol/L (3.5-5.1)
[2017-07-26] VITALS (9 sets, daily range): BP systolic 126–181; BP diastolic 38–68
[2017-07-26 03:05] LABS: BASOPHILS 0.2 % (0-2); EOSINOPHILS 4.7 % (0-7); HEMATOCRIT 29.6 % (36.0-48.0); HEMOGLOBIN 9.2 g/dL (12-16); IMMATURE GRANULOCYTES 0.3 % (0-5); LYMPHOCYTES 11.9 % (15-50); MCH 29.1 pg (26.0-34.0); MCHC 31.1 g/dL (31.0-37.0); MCV 93.7 fL (80.0-100.0); MEAN PLATELET VOLUME 10.6 fL (7.4-10.4); MONOCYTES 8.3 % (2-11); NEUTROPHILS 74.6 % (40-80); PLATELET COUNT 197 10x3/uL (130-400); RBC 3.16 10x6/uL (4.00-5.40); WBC 11.2 10x3/uL (4.8-10.8)
[2017-07-26 03:44] LABS: % SATURATION 12 % (15-55); IRON 20 ug/dl (35-150); TOTAL IRON BIND CAPACITY 158 ug/dl (260-445); UNSAT IRON BIND CAPACITY 138 ug/dl (150-375)
[2017-07-26 03:56] LABS: ANION GAP 13.4 mmol/L (8-16); CALCIUM 8.5 mg/dL (8.5-10.1); CARBON DIOXIDE 26.3 mmol/L (21.0-32.0); CREATININE - SERUM 2.1 mg/dL (0.6-1.3); PHOSPHOROUS 3.4 mg/dL (2.5-4.9); POTASSIUM - SERUM 3.7 mmol/L (3.5-5.1); T4 THYROXIN - FREE 2.01 ng/dL (0.76-1.46); THYROID STIMULATING HORMONE 0.34 uIU/mL (0.36-3.74)
[2017-07-27 01:00] VITALS: BP 162/42
[2017-07-27 04:00] VITALS: BP 164/46
[2017-07-27 06:07] LABS: ALBUMIN 2.4 g/dL (3.4-5.0); ANION GAP 10.4 mmol/L (8-16); BILIRUBIN - TOTAL 0.6 mg/dL (0.2-1.3); CARBON DIOXIDE 27.5 mmol/L (21.0-32.0); POTASSIUM - SERUM 3.9 mmol/L (3.5-5.1); PROTEIN - SERUM 5.2 g/dL (6.4-8.2)
[2017-07-27 06:11] LABS: CREATININE - SERUM 1.4 mg/dL (0.6-1.3)
[2017-07-27 07:54] VITALS: BP 191/55
[2017-07-27 13:46] VITALS: BP 161/46
[2017-07-27 15:29] VITALS: BP 175/47
[2017-07-27 20:00] VITALS: BP 180/52
[2017-07-28 01:00] VITALS: BP 93/42
[2017-07-28 05:00] VITALS: BP 174/48
[2017-07-28 05:10] LABS: BASOPHILS 0.2 % (0-2); EOSINOPHILS 8.1 % (0-7); HEMATOCRIT 30.3 % (36.0-48.0); HEMOGLOBIN 9.6 g/dL (12-16); IMMATURE GRANULOCYTES 0.6 % (0-5); LYMPHOCYTES 23.3 % (15-50); MCH 29.3 pg (26.0-34.0); MCHC 31.7 g/dL (31.0-37.0); MCV 92.4 fL (80.0-100.0); MEAN PLATELET VOLUME 10.6 fL (7.4-10.4); MONOCYTES 9.6 % (2-11); NEUTROPHILS 58.2 % (40-80); PLATELET COUNT 199 10x3/uL (130-400); RBC 3.28 10x6/uL (4.00-5.40); RDW 13.4 % (11.5-14.5)
[2017-07-28 05:56] LABS: ALBUMIN 2.3 g/dL (3.4-5.0); ANION GAP 13.3 mmol/L (8-16); BILIRUBIN - TOTAL 0.6 mg/dL (0.2-1.3); CALCIUM 9.2 mg/dL (8.5-10.1); CARBON DIOXIDE 25.8 mmol/L (21.0-32.0); CREATININE - SERUM 1.3 mg/dL (0.6-1.3); POTASSIUM - SERUM 4.1 mmol/L (3.5-5.1); PROTEIN - SERUM 5.6 g/dL (6.4-8.2)
[2017-07-28 07:00] VITALS: BP 146/50
[2017-07-28 12:00] VITALS: BP 153/54
[2017-07-28 12:10] LABS: FOLATE (FOLIC ACID) - SERUM 5.4 ng/mL (>3.0)
[2017-07-28] MEDS ORDERED: MAXIPIME 1 GM/D51 G1 IV (14:14)
[2017-07-28] MEDS ORDERED: HYDRALAZINE HCL50 MG PO (14:15)
[2017-07-28] MEDS ORDERED: HUMALOG 30100 UNITS/ SC (14:16)
[2017-07-28] MEDS ORDERED: LASIX20 MG PO (14:16)
[2017-07-28] MEDS ORDERED: FLAGYL 500500 MG/100 IV (14:17)
[2017-07-28 17:14] VITALS: BP 155/57
[2017-07-28] MEDS ORDERED: FLAGYL500 MG PO (20:54)
== END 2017-07-28 19:33 | DRG 853 ==
LOC: D.ER 11:23 → D.EDHOLD 17:33 → D.M2 17:33 → OBSVTIME 17:34 → D.M2 18:27 → D.ICU 07-24 08:09 → D.M2 07-26 13:40
PROVIDERS: Family Medicine; Internal Medicine Interventional Cardiology; Internal Medicine Nephrology
PROC: B2121ZZ Fluoroscopy of Single Coronary Artery Bypass Graft using Low Osmolar Contrast (ICD-10-PCS; 2017-07-23)
PROC: B2111ZZ Fluoroscopy of Multiple Coronary Arteries using Low Osmolar Contrast (ICD-10-PCS; 2017-07-23)
PROC: B2181ZZ Fluoroscopy of Left Internal Mammary Bypass Graft using Low Osmolar Contrast (ICD-10-PCS; 2017-07-23)
PROC: B2151ZZ Fluoroscopy of Left Heart using Low Osmolar Contrast (ICD-10-PCS; 2017-07-23)
PROC: 027034Z Dilation of Coronary Artery, One Artery with Drug-eluting Intraluminal Device, Percutaneous Approach (ICD-10-PCS; principal; 2017-07-23 10:30)
PROC: 4A023N7 Measurement of Cardiac Sampling and Pressure, Left Heart, Percutaneous Approach (ICD-10-PCS; 2017-07-23 10:30)
DX: A41.9 Sepsis, unspecified organism (principal); E11.10 Type 2 diabetes mellitus with ketoacidosis without coma; N17.9 Acute kidney failure, unspecified; J81.1 Chronic pulmonary edema; N39.0 Urinary tract infection, site not specified; E11.22 Type 2 diabetes mellitus with diabetic chronic kidney disease; I12.9 Hypertensive chronic kidney disease with stage 1 through stage 4 chronic kidney disease, or unspecified chronic kidney disease; N18.9 Chronic kidney disease, unspecified; E78.5 Hyperlipidemia, unspecified; I25.10 Atherosclerotic heart disease of native coronary artery without angina pectoris; K21.9 Gastro-esophageal reflux disease without esophagitis; F41.8 Other specified anxiety disorders; K44.9 Diaphragmatic hernia without obstruction or gangrene; E03.9 Hypothyroidism, unspecified; D64.9 Anemia, unspecified; M25.552 Pain in left hip; W19.XXXA Unspecified fall, initial encounter; Y92.230 Patient room in hospital as the place of occurrence of the external cause; K52.9 Noninfective gastroenteritis and colitis, unspecified

== ENCOUNTER 2017-07-28 20:30 | Inpatient (IN) | payer MEDICARE, OTHER ==
[~2017-07-28] VITALS: Ht 160 cm; Wt 66.6 kg
--- NOTE | ~2017-07-28 | RHP ---
PATIENT: RAYMOND KIM MEDICAL RECORD: [id number] ACCOUNT: [id number] LOCATION:[facility]1108 : 46 ADMISSION DATE: 07/28/17 REHABILITATION HISTORY AND PHYSICAL EXAMINATION POST ADMISSION PHYSICIAN EXAMINATION DATE OF ADMISSION: 07/28/2017 ADMITTING DIAGNOSIS: Uremic myopathy. HISTORY OF PRESENT ILLNESS: The patient admitted to inpatient rehab for a neurological condition uremic myopathy. Her GFR is 43. Her A1c is 8.8. Her glucose has been somewhat variable. She is a 67-year-old female patient who was admitted to [facility] with labile hypertension, shortness of breath, chest pain, found to have pulmonary edema. She underwent angiogram with PTCA on 07/24/17 and postop complications of acute kidney injury with nausea and vomiting which precipitated DKA. She was transferred to ICU where she was monitored closely and hydrated. Nephrology was consulted. Her renal functions improved. She has some abdominal pain and gastroenterology was consulted. CT showed a mild colitis and she was started on cefepime and Flagyl. She has been doing well and progressing well. She states she has been very weak and is currently on O2 at 2 liters. She uses her own insulin pump and doing it herself according to intake, but her blood sugars have been elevated. She is currently on telemetry. She was moderately independent to independent with her mobility and independent with her ADLs prior to this hospitalization. She is moderately independent to independent once again at home. She is currently standby assist to moderately assist for ADLs and she is mod assist to total assist for mobility. She has proximal muscle weakness with difficulty rising from bed or chair. She states she has been getting very short of breath and dizzy with ambulation. She has a recent fall while here in the hospital, was believe to have a hip fracture, but on CT was found not to be fractured. She also complains of difficulty swallowing at this time. She lives at home with her and plans to return back home at her prior level of functioning or better if possible. COMORBIDITIES: In this patient include labile hypertension, chest pain, acute kidney injury, colitis, shortness of breath, pulmonary edema, hypertension, coronary artery disease, hyperlipidemia, metabolic acidosis, hypotension. She has got a history of falls. PAST MEDICAL HISTORY: Significant for neuropathy. She has got a history of allergies, diabetes, thyroid problems, hypertension, CHF, urinary incontinence, PA, murmur, coronary artery disease, peripheral vascular disease, acid reflux, diverticulitis, depression, anxiety, arthritis, chronic back pain, osteomyelitis and hernia. PAST SURGICAL HISTORY: Includes gallbladder surgery. She has had hip surgery. She has had knee surgery, cataract, hysterectomy, coronary artery bypass grafting, carpal tunnel release, angioplasty with stents and fifth toe amputation. ALLERGIES: NOVOLOG INSULIN, CIPRO, PENICILLIN, PRAVACHOL, AMITIZA, PROTAMINE, PERSANTINE, BACTRIM AND PREVACID. CURRENT MEDICATIONS: Include polyethylene glycol 17 grams in 8 ounces of water HISTORY AND PHYSICAL [id number] RAYMOND KIM daily. She is on multivitamin daily, Synthroid 175 mcg daily, Avapro 300 mg daily, furosemide 20 mg daily. She is on a Duragesic patch 25 mcg q.72 hours, Plavix 75 mg daily, vitamin D 1000 units daily, Maxipime 1 gram q.24 hours and she will get 7 days of this. She is on a glucose replacement protocol at this time, Magda 60 mg b.i.d., Flagyl 500 mg t.i.d. She is on intermediate resistance sliding scale with Humalog. She is on Apresoline 50 mg t.i.d., Pepcid 20 mg b.i.d. She is on cyclosporine 1 drop b.i.d. and Catapres 0.2 mg q.6 hours p.r.n. elevated blood pressures. HABITS: No current alcohol or tobacco use. FAMILY HISTORY: Noncontributory. SOCIAL HISTORY: The patient hopes to return back home with her and get back to her prior level of functioning. REVIEW OF SYSTEMS: GENERAL: Does complain of weakness and fatigue. HEENT: Denies cold, cough, or congestion. CARDIOVASCULAR: Denies chest pain. LUNGS: Does complain of shortness of breath with activity. PHYSICAL EXAMINATION: VITAL SIGNS: Stable. She is afebrile. GENERAL: A somewhat overweight female, in no acute distress, alert upon exam. HEENT: Normocephalic and atraumatic. Mucosa moist. NECK: Supple. No lymphadenopathy. LUNGS: Clear at this time. HEART: Regular rate and rhythm. ABDOMEN: Benign. EXTREMITIES: No clubbing, cyanosis, or edema. NEUROLOGIC: She does have noted weakness. LABORATORY DATA: Sodium is 140, potassium 3.5, BUN and creatinine of 21 and 1.0 and blood sugar is noted to be 72. Her white count 7.3, H&H 9.6 and 30.6 and platelet count was noted to be 204. 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 The patient has potential to make improvement. We instituted the following multidisciplinary therapies including but not limited to physical, occupational, respiratory, speech, nutritional services, prosthetics and orthotics. Given her complex condition and risk for more complications, rehabilitation services cannot be provided at the low level of care such as skilled nurse facility. PLAN: 1. Admit to [facility] for intensive inpatient therapy to include the following disciplines: A. Physical therapy to improve gait, all transfer skills and bed mobility to a modified independent level. B. Occupational therapy to improve activities of daily living to a modified independent level. C. Case management to assist with discharge planning and placement options. D. Nutrition to assist with nutritional needs. E. Rehabilitation nursing to assist in monitoring the patient's underlying HISTORY AND PHYSICAL [id number] IRISHRAYMOND FLOR medical conditions and to assist with any type of bowel or bladder management. 2. The patient's current medication and medical care will be continued. 3. The patient will be placed on standard fall precautions. 4. The patient's estimated length of stay is approximately 7-10 days. 5. Discuss this patient during care team staff meeting this week. We will go ahead and work on getting her back home with her . TRANSINT:[id number] Voice Confirmation ID: [id number] DOCUMENT ID: [id number] 08/14/2017 Edited for leigh ann GREY. QUE notes whether there has been none or any medical/functional change since admission: - No chance since preadmission screen. QUE attests patient continues to be appropriate for IRF: - Continues to be appropriate. SCOTTIE GAYLE MD at 1012 CC: [id number] DICTATION DATE: 07/29/17819 PROFESSOR OF GENETICS: 07/29/17911 DIS IN 08/05/17 [place] [address]
[~2017-07-28 20:30] MED LIST changes: +CATAPRES0.2 MG PO; +CLARITIN 10 MG10 MG PO; +CRANBERRY 400 M1 TA1 PO; +FLAGYL 500500 MG/100 IV; +HUMALOG 30100 UNITS/ SC; +HYDRALAZINE HCL50 MG PO; +LASIX20 MG PO; +MAXIPIME 1 GM/D51 G1 IV; +MIRALAX17 GM PO; +MULTIPLE VITAMI1 TA1 PO; +REPATHA SY140 MG/1 M SC; +RESTASIS EYE DR30 EA EACH EYE
[2017-07-28 20:37] VITALS: BP 139/48; BMI 26.0
[2017-07-28] MEDS ORDERED: FLAGYL500 MG PO (20:54)
[2017-07-29 05:50] LABS: BASOPHILS 0.3 % (0-2); EOSINOPHILS 8.3 % (0-7); HEMATOCRIT 30.6 % (36.0-48.0); HEMOGLOBIN 9.6 g/dL (12-16); IMMATURE GRANULOCYTES 0.5 % (0-5); LYMPHOCYTES 24.1 % (15-50); MCH 29.3 pg (26.0-34.0); MCHC 31.4 g/dL (31.0-37.0); MCV 93.3 fL (80.0-100.0); MEAN PLATELET VOLUME 10.1 fL (7.4-10.4); MONOCYTES 9.7 % (2-11); NEUTROPHILS 57.1 % (40-80); PLATELET COUNT 204 10x3/uL (130-400); RBC 3.28 10x6/uL (4.00-5.40); RDW 13.6 % (11.5-14.5); WBC 7.3 10x3/uL (4.8-10.8)
[2017-07-29 07:07] LABS: ANION GAP 10.5 mmol/L (8-16); CALCIUM 8.9 mg/dL (8.5-10.1); POTASSIUM - SERUM 3.5 mmol/L (3.5-5.1)
[2017-07-29 08:00] VITALS: BP 102/40
[2017-07-29 13:31] VITALS: BMI 26.0
[2017-07-29 19:56] VITALS: BP 135/49
[2017-07-29 21:31] LABS: HEMATOCRIT 31.4 % (36.0-48.0)
[2017-07-30 02:46] LABS: BASOPHILS 0.2 % (0-2); EOSINOPHILS 2.7 % (0-7); HEMATOCRIT 28.3 % (36.0-48.0); IMMATURE GRANULOCYTES 0.6 % (0-5); LYMPHOCYTES 20.7 % (15-50); MCH 29.6 pg (26.0-34.0); MCHC 31.8 g/dL (31.0-37.0); MCV 93.1 fL (80.0-100.0); MONOCYTES 8.2 % (2-11); NEUTROPHILS 67.6 % (40-80); PLATELET COUNT 213 10x3/uL (130-400); RBC 3.04 10x6/uL (4.00-5.40); RDW 13.9 % (11.5-14.5); WBC 8.2 10x3/uL (4.8-10.8)
[2017-07-30 02:49] LABS: ANION GAP 6.2 mmol/L (8-16); CALCIUM 8.6 mg/dL (8.5-10.1); CARBON DIOXIDE 31.6 mmol/L (21.0-32.0); CREATININE - SERUM 1.3 mg/dL (0.6-1.3); POTASSIUM - SERUM 3.8 mmol/L (3.5-5.1)
[2017-07-30 08:00] VITALS: BP 151/43
[2017-07-30 08:36] LABS: HEMATOCRIT 30.2 % (36.0-48.0); HEMOGLOBIN 9.4 g/dL (12-16)
[2017-07-30 15:28] LABS: HEMATOCRIT 30.5 % (36.0-48.0); HEMOGLOBIN 9.5 g/dL (12-16)
[2017-07-30 17:22] VITALS: Ht 160 cm; Wt 66.6 kg
[2017-07-30 19:54] VITALS: BP 118/52
[2017-07-30 20:15] LABS: HEMATOCRIT 31.8 % (36.0-48.0)
[2017-07-31 07:09] LABS: HEMATOCRIT 28.2 % (36.0-48.0); HEMOGLOBIN 8.6 g/dL (12-16)
[2017-07-31 08:00] VITALS: BP 106/37
[2017-07-31 23:09] VITALS: BP 123/37
[2017-08-01] VITALS (8 sets, daily range): BP systolic 108–146; BP diastolic 44–55
[2017-08-01 07:59] LABS: BASOPHILS 0.4 % (0-2); EOSINOPHILS 6.5 % (0-7); HEMATOCRIT 28.5 % (36.0-48.0); HEMOGLOBIN 8.7 g/dL (12-16); IMMATURE GRANULOCYTES 0.5 % (0-5); LYMPHOCYTES 22.5 % (15-50); MCH 29.2 pg (26.0-34.0); MCHC 30.5 g/dL (31.0-37.0); MCV 95.6 fL (80.0-100.0); MEAN PLATELET VOLUME 10.1 fL (7.4-10.4); MONOCYTES 9.3 % (2-11); NEUTROPHILS 60.8 % (40-80); PLATELET COUNT 220 10x3/uL (130-400); RBC 2.98 10x6/uL (4.00-5.40); RDW 14.5 % (11.5-14.5); WBC 7.7 10x3/uL (4.8-10.8)
[2017-08-01 08:23] LABS: ANION GAP 9.8 mmol/L (8-16); CALCIUM 9.1 mg/dL (8.5-10.1); CREATININE - SERUM 1.5 mg/dL (0.6-1.3); POTASSIUM - SERUM 3.8 mmol/L (3.5-5.1)
[2017-08-02 08:00] VITALS: BP 127/40
[2017-08-02 14:26] VITALS: BP 136/46
[2017-08-02 21:39] VITALS: BP 133/75
[2017-08-03 11:03] LABS: CALCIUM 9.2 mg/dL (8.5-10.1); CREATININE - SERUM 1.5 mg/dL (0.6-1.3)
[2017-08-03 22:34] VITALS: BP 130/80
[2017-08-04 07:30] VITALS: BP 136/62
[2017-08-04 19:00] VITALS: BP 127/46
[2017-08-05 06:36] LABS: BASOPHILS 0.3 % (0-2); EOSINOPHILS 4.6 % (0-7); HEMATOCRIT 28.3 % (36.0-48.0); HEMOGLOBIN 8.9 g/dL (12-16); IMMATURE GRANULOCYTES 0.7 % (0-5); LYMPHOCYTES 21.4 % (15-50); MCH 29.7 pg (26.0-34.0); MCHC 31.4 g/dL (31.0-37.0); MCV 94.3 fL (80.0-100.0); MEAN PLATELET VOLUME 10.2 fL (7.4-10.4); MONOCYTES 9.1 % (2-11); NEUTROPHILS 63.9 % (40-80); RDW 14.9 % (11.5-14.5); WBC 10.2 10x3/uL (4.8-10.8)
[2017-08-05 06:42] LABS: PLATELET COUNT 285 10x3/uL (130-400)
[2017-08-05 07:02] LABS: ANION GAP 12.1 mmol/L (8-16); CARBON DIOXIDE 27.8 mmol/L (21.0-32.0); CREATININE - SERUM 1.7 mg/dL (0.6-1.3); POTASSIUM - SERUM 4.9 mmol/L (3.5-5.1)
[2017-08-05 08:07] VITALS: BP 145/57
== END 2017-08-05 18:17 | disposition short-term general hospital (02) | DRG 92 ==
LOC: D.REHAB 20:30
PROVIDERS: Emergency Medicine
DX: G72.89 Other specified myopathies (principal); J81.1 Chronic pulmonary edema; N17.9 Acute kidney failure, unspecified; E87.2 Acidosis; K55.9 Vascular disorder of intestine, unspecified; I10 Essential (primary) hypertension; E78.5 Hyperlipidemia, unspecified; I95.9 Hypotension, unspecified; Z91.81 History of falling; R07.9 Chest pain, unspecified; R06.02 Shortness of breath; E11.65 Type 2 diabetes mellitus with hyperglycemia; K31.84 Gastroparesis; R25.2 Cramp and spasm

== ENCOUNTER 2017-08-05 17:56 | Inpatient (IN) | payer MEDICARE, OTHER ==
[2017-08-05] VITALS (7 sets, daily range): BP systolic 99–143; BP diastolic 48–86; BMI 33.0
[~2017-08-05] VITALS: Ht 160 cm; Wt 80.6 kg
--- NOTE | ~2017-08-05 | EC ---
PATIENT:RAYMOND KIM DATE OF SERVICE: 08/05/17 SEX: F MEDICAL RECORD: [id number] DATE OF : 46 LOCATION:[facility] AGE OF PATIENT: 67 ADMISSION DATE: 08/05/17 REFERRING PHYSICIAN: INTERPRETING PHYSICIAN: BUDDY AQUINO MD ECHOCARDIOGRAM REPORT ECHO CHARGES Date: CLINICAL DIAGNOSIS: ECHOCARDIOGRAPHIC MEASUREMENTS (adult normal given) AC root (d.<3.7cm) cm LV Septum d (<1.2 cm> cm Valve Excursion cm LV Septum (systole) cm Left Atria (s.<4.0cm> cm LVPW d(<1.2cm) cm RV (d.<2.3cm) cm LVPW (sytole) cm LV diastole(<5.6CM) cm MV E-F(>70mm/sec) cm LV systole cm LVOT Diameter cm MV exc.(>10mm) cm Est.ejection fraction (50-75%) % DOPPLER: LVIT cm/sec A cm/sec E cm/sec LA cm/sec RVSP mmHg LVOT cm/sec AOP1/2T m/s Asc. Ao cm/sec RVOT cm/sec RA cm/sec PA cm/sec AV Gradient Peak mmHg AV Mean mmHg AV Area cm MV Gradient Peak mmHg MV Mean mmHg MV Area cm COMMENTS: Sheet Catcher: Religious Ritual Slaughterer: JUAN CARLOS# Pericardial Effusion DATE OF SERVICE: PROCEDURE: Transthoracic echocardiogram. FINDINGS: 1. Left ventricle shows mild left ventricular hypertrophy, normal wall motion. Left atrium is significantly dilated. Mitral valve has mild mitral regurgitation. Tricuspid valve has moderate tricuspid regurgitation, RVSP of 50 mmHg. 2. The right ventricle appears to be normal shape, normal function. No ECHOCARDIOGRAM REPORT [id number] RAYMOND KIM significant change in the LV function compared to prior. No new regional wall motion abnormalities. The RVSP is similar. TRANSINT:[id number] Voice Confirmation ID: [id number] DOCUMENT ID: [id number] BUDDY AQUINO MD at 1500 CC: [id number] DICTATION DATE: 08/08/17 1403 VICE PRESIDENT OF MARKETING: 08/08/17 1759 ADM IN [address], [place] [address]
[~2017-08-05 17:56] MED LIST changes: +FLAGYL500 MG PO
[2017-08-05 20:15] LABS: BASOPHILS 0.4 % (0-2); EOSINOPHILS 5.5 % (0-7); HEMOGLOBIN 9.2 g/dL (12-16); IMMATURE GRANULOCYTES 0.6 % (0-5); LYMPHOCYTES 15.8 % (15-50); MCH 29.6 pg (26.0-34.0); MCHC 31.7 g/dL (31.0-37.0); MCV 93.2 fL (80.0-100.0); MEAN PLATELET VOLUME 10.2 fL (7.4-10.4); MONOCYTES 8.6 % (2-11); NEUTROPHILS 69.1 % (40-80); PLATELET COUNT 306 10x3/uL (130-400); RBC 3.11 10x6/uL (4.00-5.40); RDW 14.4 % (11.5-14.5); WBC 10.9 10x3/uL (4.8-10.8)
[2017-08-05 20:39] LABS: ANION GAP 12.5 mmol/L (8-16); CALCIUM 9.4 mg/dL (8.5-10.1); CARBON DIOXIDE 27.3 mmol/L (21.0-32.0); CREATININE - SERUM 1.6 mg/dL (0.6-1.3); POTASSIUM - SERUM 4.8 mmol/L (3.5-5.1)
[2017-08-06] VITALS (24 sets, daily range): BP systolic 95–155; BP diastolic 44–80; Ht 160 cm; Wt 80.6 kg
[2017-08-06 12:24] LABS: APPEARANCE CLEAR (CLEAR); BILIRUBIN NEGATIVE (NEGATIVE); COLOR YELLOW (YELLOW); GLUCOSE NEGATIVE (NEGATIVE); KETONE NEGATIVE (NEGATIVE); NITRITE NEGATIVE (NEGATIVE); PROTEIN NEGATIVE (NEGATIVE); UROBILINOGEN NORMAL (NORMAL)
[2017-08-07] VITALS (24 sets, daily range): BP systolic 85–155; BP diastolic 41–857
[2017-08-07 04:03] LABS: BASOPHILS 0.8 % (0-2); EOSINOPHILS 8.1 % (0-7); HEMATOCRIT 27.9 % (36.0-48.0); HEMOGLOBIN 8.6 g/dL (12-16); IMMATURE GRANULOCYTES 0.8 % (0-5); MCH 29.4 pg (26.0-34.0); MCHC 30.8 g/dL (31.0-37.0); MEAN PLATELET VOLUME 10.2 fL (7.4-10.4); MONOCYTES 8.7 % (2-11); NEUTROPHILS 60.6 % (40-80); PLATELET COUNT 304 10x3/uL (130-400); RBC 2.93 10x6/uL (4.00-5.40); RDW 14.5 % (11.5-14.5)
[2017-08-07 04:11] LABS: MCV 95.2 fL (80.0-100.0); WBC 7.3 10x3/uL (4.8-10.8)
[2017-08-07 04:41] LABS: ANION GAP 9.3 mmol/L (8-16); BILIRUBIN - TOTAL 0.23 mg/dL (0.2-1.3); CALCIUM 8.5 mg/dL (8.5-10.1); CARBON DIOXIDE 30.6 mmol/L (21.0-32.0); CREATININE - SERUM 1.7 mg/dL (0.6-1.3); MAGNESIUM - SERUM 1.8 mg/dL (1.8-2.4); PHOSPHOROUS 3.7 mg/dL (2.5-4.9); POTASSIUM - SERUM 4.9 mmol/L (3.5-5.1); PROTEIN - SERUM 5.4 g/dL (6.4-8.2); T4 THYROXIN - FREE 1.28 ng/dL (0.76-1.46); THYROID STIMULATING HORMONE 1.54 uIU/mL (0.36-3.74)
[2017-08-08] VITALS (24 sets, daily range): BP systolic 106–169; BP diastolic 45–82
[2017-08-08 05:04] LABS: BASOPHILS 0.5 % (0-2); EOSINOPHILS 9.2 % (0-7); HEMATOCRIT 28.8 % (36.0-48.0); HEMOGLOBIN 8.8 g/dL (12-16); IMMATURE GRANULOCYTES 0.8 % (0-5); LYMPHOCYTES 22.9 % (15-50); MCH 28.8 pg (26.0-34.0); MCHC 30.6 g/dL (31.0-37.0); MCV 94.1 fL (80.0-100.0); MEAN PLATELET VOLUME 10.1 fL (7.4-10.4); MONOCYTES 9.7 % (2-11); NEUTROPHILS 56.9 % (40-80); PLATELET COUNT 328 10x3/uL (130-400); RBC 3.06 10x6/uL (4.00-5.40); RDW 14.3 % (11.5-14.5); WBC 6.3 10x3/uL (4.8-10.8)
[2017-08-08 05:25] LABS: ANION GAP 8.2 mmol/L (8-16); BILIRUBIN - TOTAL 0.28 mg/dL (0.2-1.3); CALCIUM 8.5 mg/dL (8.5-10.1); CARBON DIOXIDE 32.5 mmol/L (21.0-32.0); CREATININE - SERUM 1.5 mg/dL (0.6-1.3); MAGNESIUM - SERUM 1.7 mg/dL (1.8-2.4); PHOSPHOROUS 3.3 mg/dL (2.5-4.9); POTASSIUM - SERUM 4.7 mmol/L (3.5-5.1); PROTEIN - SERUM 5.5 g/dL (6.4-8.2)
[2017-08-08 08:44] LABS: % SATURATION 24 % (15-55); IRON 37 ug/dl (35-150); TOTAL IRON BIND CAPACITY 151 ug/dl (260-445); UNSAT IRON BIND CAPACITY 114 ug/dl (150-375)
[2017-08-09] VITALS (15 sets, daily range): BP systolic 100–167; BP diastolic 45–66
[2017-08-09 04:45] LABS: BASOPHILS 0.6 % (0-2); EOSINOPHILS 8.4 % (0-7); HEMATOCRIT 29.1 % (36.0-48.0); HEMOGLOBIN 9.2 g/dL (12-16); IMMATURE GRANULOCYTES 0.9 % (0-5); LYMPHOCYTES 24.4 % (15-50); MCH 29.3 pg (26.0-34.0); MCHC 31.6 g/dL (31.0-37.0); MCV 92.7 fL (80.0-100.0); MEAN PLATELET VOLUME 9.5 fL (7.4-10.4); MONOCYTES 10.7 % (2-11); PLATELET COUNT 305 10x3/uL (130-400); RBC 3.14 10x6/uL (4.00-5.40); WBC 6.8 10x3/uL (4.8-10.8)
[2017-08-09 05:09] LABS: ANION GAP 6.7 mmol/L (8-16); CALCIUM 8.8 mg/dL (8.5-10.1); CARBON DIOXIDE 34.9 mmol/L (21.0-32.0); CREATININE - SERUM 1.2 mg/dL (0.6-1.3); MAGNESIUM - SERUM 1.8 mg/dL (1.8-2.4); PHOSPHOROUS 3.5 mg/dL (2.5-4.9); POTASSIUM - SERUM 4.6 mmol/L (3.5-5.1)
[2017-08-09 08:17] LABS: FOLATE (FOLIC ACID) - SERUM 16.5 ng/mL (>3.0)
[2017-08-10] VITALS: BP 164/56
[2017-08-10 04:00] VITALS: BP 121/43
[2017-08-10 05:42] LABS: BASOPHILS 0.5 % (0-2); HEMATOCRIT 29.3 % (36.0-48.0); HEMOGLOBIN 9.2 g/dL (12-16); IMMATURE GRANULOCYTES 0.5 % (0-5); LYMPHOCYTES 22.5 % (15-50); MCH 29.2 pg (26.0-34.0); MCHC 31.4 g/dL (31.0-37.0); MONOCYTES 9.3 % (2-11); NEUTROPHILS 59.2 % (40-80); PLATELET COUNT 336 10x3/uL (130-400); RBC 3.15 10x6/uL (4.00-5.40); WBC 7.3 10x3/uL (4.8-10.8)
[2017-08-10 06:00] LABS: ANION GAP 9.3 mmol/L (8-16); CALCIUM 8.9 mg/dL (8.5-10.1); CARBON DIOXIDE 32.1 mmol/L (21.0-32.0); CREATININE - SERUM 1.1 mg/dL (0.6-1.3); PHOSPHOROUS 3.9 mg/dL (2.5-4.9); POTASSIUM - SERUM 4.4 mmol/L (3.5-5.1)
[2017-08-10 09:15] VITALS: BP 155/49
[2017-08-10 11:33] VITALS: BP 131/43
[2017-08-10 16:10] VITALS: BP 147/56
[2017-08-10 22:40] VITALS: BP 152/49
[2017-08-11 03:53] VITALS: BP 159/50
[2017-08-11 04:23] LABS: BASOPHILS 0.5 % (0-2); EOSINOPHILS 6.7 % (0-7); HEMATOCRIT 28.4 % (36.0-48.0); IMMATURE GRANULOCYTES 0.5 % (0-5); LYMPHOCYTES 19.3 % (15-50); MCH 29.2 pg (26.0-34.0); MCHC 31.7 g/dL (31.0-37.0); MCV 92.2 fL (80.0-100.0); MEAN PLATELET VOLUME 9.7 fL (7.4-10.4); MONOCYTES 10.4 % (2-11); NEUTROPHILS 62.6 % (40-80); PLATELET COUNT 315 10x3/uL (130-400); RBC 3.08 10x6/uL (4.00-5.40); WBC 7.3 10x3/uL (4.8-10.8)
[2017-08-11 04:32] LABS: ANION GAP 8.1 mmol/L (8-16); CALCIUM 8.8 mg/dL (8.5-10.1); CARBON DIOXIDE 32.4 mmol/L (21.0-32.0); CREATININE - SERUM 1.1 mg/dL (0.6-1.3); POTASSIUM - SERUM 4.5 mmol/L (3.5-5.1)
[2017-08-11 08:23] VITALS: BP 148/50
[2017-08-11 13:53] VITALS: BP 153/53
[2017-08-11 16:41] VITALS: BP 152/72
[2017-08-11 20:20] VITALS: BP 126/41
[2017-08-12 01:02] VITALS: BP 115/47
[2017-08-12 04:22] VITALS: BP 124/64
[2017-08-12 04:58] LABS: BASOPHILS 0.9 % (0-2); EOSINOPHILS 4.3 % (0-7); HEMATOCRIT 27.4 % (36.0-48.0); HEMOGLOBIN 8.7 g/dL (12-16); IMMATURE GRANULOCYTES 0.4 % (0-5); MCH 29.2 pg (26.0-34.0); MCHC 31.8 g/dL (31.0-37.0); MCV 91.9 fL (80.0-100.0); MEAN PLATELET VOLUME 9.8 fL (7.4-10.4); MONOCYTES 11.4 % (2-11); PLATELET COUNT 292 10x3/uL (130-400); RBC 2.98 10x6/uL (4.00-5.40); RDW 13.9 % (11.5-14.5); WBC 6.7 10x3/uL (4.8-10.8)
[2017-08-12 05:16] LABS: ANION GAP 8.1 mmol/L (8-16); CALCIUM 9.1 mg/dL (8.5-10.1); CARBON DIOXIDE 30.6 mmol/L (21.0-32.0); CREATININE - SERUM 1.2 mg/dL (0.6-1.3); MAGNESIUM - SERUM 1.8 mg/dL (1.8-2.4); PHOSPHOROUS 3.3 mg/dL (2.5-4.9); POTASSIUM - SERUM 4.7 mmol/L (3.5-5.1)
[2017-08-12 07:00] VITALS: BP 144/50
[2017-08-12 12:25] VITALS: BP 126/49
[2017-08-12] MEDS ORDERED: AVAPRO75 MG PO (13:04)
[2017-08-12] MEDS ORDERED: REGLAN10 MG PO (13:05)
[2017-08-12] MEDS ORDERED: ZOFRAN ODT4 MG/UDTAB PO (13:05)
[2017-08-12] MEDS ORDERED: LASIX40 MG PO (13:05)
[2017-08-12] MEDS ORDERED: Bactroban ointment TOPICAL (13:06)
[2017-08-12] MEDS ORDERED: NYSTATIN1 PWD TOPICAL (13:06)
[2017-08-12] MEDS ORDERED: HUMULIN R100 U/ML SC (13:06)
== END 2017-08-12 15:13 | DRG 292 ==
LOC: D.ICU 17:56 → D.MS 08-09 17:43
PROVIDERS: Emergency Medicine; Family Medicine; Internal Medicine
DX: I11.0 Hypertensive heart disease with heart failure (principal); N17.9 Acute kidney failure, unspecified; I50.23 Acute on chronic systolic (congestive) heart failure; I10 Essential (primary) hypertension; L89.621 Pressure ulcer of left heel, stage 1; B37.3 Candidiasis of vulva and vagina; E11.43 Type 2 diabetes mellitus with diabetic autonomic (poly)neuropathy; K31.84 Gastroparesis; D64.9 Anemia, unspecified; K44.9 Diaphragmatic hernia without obstruction or gangrene; K21.9 Gastro-esophageal reflux disease without esophagitis; I25.10 Atherosclerotic heart disease of native coronary artery without angina pectoris

== ENCOUNTER 2017-08-23 22:01 | Inpatient (IN) | payer MEDICARE, OTHER ==
[~2017-08-23] VITALS: Ht 160 cm; Wt 70.0 kg
--- NOTE | ~2017-08-23 | CN ---
PATIENT NAME:RAYMOND TORRES MEDICAL RECORD: [id number] : 46 LOCATION:[facility]7 ADMIT DATE: 08/24/17 ACCOUNT: [id number] CONSULTING PHYSICIAN: KEISHA NUNN MD REFERRING PHYSICIAN: AYSHA HARPER MD DATE OF CONSULTATION: 08/24/2017 CARDIOLOGY CONSULT DIAGNOSES: 1. Coronary disease. 2. Previous PTCA and stent. 3. Cardiomyopathy. 4. Hypotension. 5. Shock, hypovolemic. 6. GI bleed. HISTORY: Mrs. Torres presents with acute GI bleed, dropping her hemoglobin down under 8. She as well has diabetes and a blood sugar of almost 600. Her blood pressure is low. She does have a history of coronary disease, recent PTCA and stent; recent GI bleed, had to be taken off aspirin and Plavix at that time. She has done well. She has had epigastric pain as well as chest pain, but her EKG is with no acute ST-T changes. Her and she have decided for comfort care and DNR. PHYSICAL EXAMINATION: GENERAL APPEARANCE: Well-nourished, well-developed, appears stated age. Level of distress, comfortable. PSYCHIATRIC: Mental status, alert, normal affect. Orientation, oriented to time, place and person. EYES: Lids and conjunctiva, noninjected. No discharge, no pallor. ENT: Lips, teeth, gums, normal dentition. Oropharynx, no cyanosis, no pallor. NECK: Carotid arteries, bilateral normal upstroke, no bruits, no thrills. JUGULAR VEINS: No jugular venous pressure or distention. CERVICAL LYMPH NODES: Nontender, nonenlarged. THYROID: Not enlarged. Nontender. No nodules. LUNGS: Respiratory effort, unlabored. CHEST: Normal curvature. No thoracic deformity. No chest wall tenderness. Percussion, resonant. Auscultation, clear. No wheezes, no rales, no rhonchi. CARDIOVASCULAR: Precordial exam, nondisplaced. No heaves or pericardial thrills. Rate and rhythm, regular. Heart sounds, normal S1, normal S2. No S3, no gallop, no rub. Systolic murmur, not heard. Diastolic murmur, not heard. EXTREMITIES: No cyanosis, no edema. Peripheral pulses, full and equal in all extremities, except as noted. No bruits appreciated. ABDOMEN: Soft, nondistended. Normal aorta. No bruit. Nontender. No masses. Liver, nontender, no hepatomegaly. Spleen, nontender, no splenomegaly. MUSCULOSKELETAL: No joint tenderness. No joint swelling. No erythema. NEUROLOGICAL: Normal gait, normal strength, normal tone. SKIN: Warm and dry. OVERALL IMPRESSION: From the cardiac standpoint, we cannot anticoagulate her secondary to the acute GI bleed and the hypovolemic shock. At this point, no other cardiac workup or treatment is necessary. Agree with comfort care measures only for her. CONSULT REPORT [id number] IRISHRICChrisRAYMOND SAQIB TRANSINT:[id number] Voice Confirmation ID: [id number] DOCUMENT ID: [id number] KEISHA NUNN MD at 1403 CC: [id number] DICTATION DATE: 08/24/17 1115 MAMMOGRAPHER: 08/24/17 1521 DIS IN 08/24/17 [facility] [address] [place] [address]
--- NOTE | ~2017-08-23 | HP ---
PATIENT: RAYMOND KIM MEDICAL RECORD: [id number] ACCOUNT: [id number] LOCATION:[facility]2307 : 46 ADMISSION DATE: 08/24/17 HISTORY AND PHYSICAL EXAMINATION DATE OF ADMISSION: 08/24/2017 CHIEF COMPLAINT: Nausea and vomiting blood. HISTORY OF PRESENT ILLNESS: The patient is a 67-year-old female with an extensive past medical history. The patient states that on Friday she developed nausea, she had vomiting, she has presented complaining of vomiting up blood, presented to the Emergency Room where it was felt that she warranted admission. The patient was admitted. She has developed hypotension, acute anemia. Also, the patient has had hyperglycemia. PAST MEDICAL HISTORY: Her past history is significant in that she has had coronary artery bypass grafting. She has had cardiac stenting by Dr. Danielle. She has had a hysterectomy. She is . History of anxiety. Type 1 diabetes, on insulin pump. Gastroesophageal reflux. History of prior GI bleed. Hypothyroidism. Peptic ulcer. Peripheral vascular disease. Hypothyroidism. Coronary artery bypass grafting. Chronic back pain. Osteoporosis. Had left elbow replacement. 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 She has had knee surgery. FAMILY HISTORY: Mother with history of hypertension. Father had history of depression as well as gout. SOCIAL HISTORY: The patient has never been a smoker. Nondrinker. She is . MEDICATIONS: Include amlodipine 10 mg 1 p.o. every day, baclofen 20 mg p.o. at bedtime p.r.n. muscle spasm, clonidine 0.1 mg tablet every 8 hours for hypertension, Pepcid 20 mg p.o. b.i.d., fentanyl 25 mcg patch, insulin pump, on Humalog, Avapro 300 mg once a day, Lasix 20 mg daily, Plavix 75 mg once a day, Repatha 140 mg per mL every 2 weeks, Synthroid 175 mcg once a day, tramadol 50 mg once a day, vitamin D 1000 international units daily. ALLERGIES: BEXTRA, CIPRO, PENICILLIN, PRAVACHOL, PROTAMINE, SULFA. REVIEW OF SYSTEMS: The patient denies any headaches, seizure, or syncope. She denies change in visual or auditory acuity. Pulmonary, she does report of some shortness of breath. Also, she is complaining substernal chest pain. She has had nausea. She has had recent history of coughing up blood. She has been vomiting blood. PHYSICAL EXAMINATION: VITAL SIGNS: In the Emergency Room, the patient's temperature was 98, her pulse was 90, respirations 20, blood pressure 121/51. She was on 3 liters. LABORATORY DATA: Initially upon presentation, the patient's sodium was 127, her potassium was 5.5, chloride was 89, BUN was 22, creatinine of 1.1. She had a blood sugar of 484. PT was 12.4, INR 0.96. White count was 11.7, hemoglobin 10.4, hematocrit was 32.6, and her platelets were 281. HISTORY AND PHYSICAL [id number] RAYMOND KIM The patient admitted to ICU. On the next 4 hours, the patient was noted to have hypotension as well as hyperglycemia. She had CK-MB elevated at 4.2. Her troponin was 0.931. White count was 9.4, hemoglobin dropped to 8.8, hematocrit was 28.3. Blood sugar was elevated at 573. Sodium 131, potassium 5.7, chloride was 88, BUN of 28, creatinine is 2. The patient was placed on Levophed due to her hypotension of 83/34. She had 1 unit of packed red blood cells as well as a unit of platelets. ASSESSMENT: Upper GI bleed, history of arteriosclerotic heart disease, history of coronary artery bypass grafting and stenting, prior history of upper GI bleed, hypothyroidism, chronic gastroesophageal reflux, type 1 diabetes. PLAN: The patient was given 20 units of Humalog. She will be placed on Humalog sliding scale B. We will check her blood sugar every 1 hour. Also, GI consultation will be obtained as well as cardiology consultation. We will continue to monitor the patient's condition. She will be admitted to ICU. TRANSINT:[id number] Voice Confirmation ID: [id number] DOCUMENT ID: [id number] AYSHA HARPER MD at 1426 CC: [id number] DICTATION DATE: 08/24/1753 ANAESTHETIC TECHNICIAN: 08/24/17 1329 ADM IN [place] [id number] [place] [address]
--- NOTE | ~2017-08-23 | DS ---
PATIENT:RAYMOND KIM :46 MEDICAL RECORD: [id number] DISCHARGE SUMMARY ADMISSION DATE: 08/24/17 DISCHARGE DATE: 08/24/17 DATE OF ADMISSION: 08/24/2017 DATE OF DISCHARGE: 08/24/2017 HOSPITAL COURSE: This patient is a 67-year-old female who had extensive medical history in the past. She had had nausea and was vomiting blood. The patient presented complaining of vomiting of blood in the Emergency Room, it was felt the patient warranted admission. The patient was admitted. She developed hypotension with acute anemia, also hyperglycemia. PHYSICAL EXAMINATION: VITAL SIGNS: In the Emergency Room, her temperature was 98, her pulse was 90, respirations 20, blood pressure 121/51. She was on 3 liters O2. HEENT: Unremarkable. NECK: Supple. There is no adenopathy. HEART: Had a regular rate. LUNGS: Clear. LABORATORY DATA: The patient initially had a sodium of 127, her potassium is 5.5, her chloride was 89, her BUN is 22, creatinine 1.1. She had a blood sugar of 484. PT was 12.4 with an INR of 0.9. White count was 11.7, hemoglobin 10.4, hematocrit of 32.6, her platelets were 281. The patient was admitted to ICU, 4 hours thereafter she developed hypotensive as well as hyperglycemia. Her CPK was elevated at 4.2, troponin 0.931. White count was 9.4, hemoglobin dropped to 8.8, hematocrit was 28.3, blood sugar of 571. The patient was placed on Levophed due to her hypotension with a blood pressure of 83/34. She had 1 unit of packed red blood cell. Cardiology consultation was obtained as well as GI consultation. She was seen by her machine washer who felt from a cardiac standpoint could not anticoagulate the patient secondary to acute gastrointestinal bleed, hypovolemic shock. There was no other cardiac workup treatment necessary. had wanted the patient to have comfort care, machine washer did agree. Dr. Daisha Puente also agreed with comfort care secondary to multiorgan decline, electrolyte imbalance. He wished the patient to be discharged to hospice; therefore, the patient was discharged to hospice. Continue all current medications. Treatment was for comfort care only. TRANSINT:[id number] Voice Confirmation ID: [id number] DOCUMENT ID: [id number] AYSHA HARPER MD at 1511 CC: [id number] DICTATION DATE: 09/21/17 1058 METER TESTER PRIMARY: 09/21/17 1500 DIS IN 08/24/17 [place] [id number] [place] [id number]
[~2017-08-23 22:01] MED LIST changes: +AVAPRO75 MG PO; +Bactroban ointment TOPICAL; +HUMULIN R100 U/ML SC; +LASIX40 MG PO; +NYSTATIN1 PWD TOPICAL; +REGLAN10 MG PO; +ZOFRAN ODT4 MG/UDTAB PO
[2017-08-23 22:36] LABS: BASOPHILS 0.3 % (0-2); EOSINOPHILS 1.3 % (0-7); HEMATOCRIT 32.6 % (36.0-48.0); HEMOGLOBIN 10.4 g/dL (12-16); IMMATURE GRANULOCYTES 0.3 % (0-5); LYMPHOCYTES 12.6 % (15-50); MCH 29.2 pg (26.0-34.0); MCHC 31.9 g/dL (31.0-37.0); MCV 91.6 fL (80.0-100.0); MEAN PLATELET VOLUME 9.4 fL (7.4-10.4); MONOCYTES 4.7 % (2-11); NEUTROPHILS 80.8 % (40-80); PLATELET COUNT 281 10x3/uL (130-400); RBC 3.56 10x6/uL (4.00-5.40); RDW 13.6 % (11.5-14.5)
[2017-08-23 22:43] LABS: WBC 11.7 10x3/uL (4.8-10.8)
[2017-08-23 22:54] LABS: APTT 29.6 SECONDS (22.8-39.4); INR 0.96 (0.85-1.17); PROTIME 12.4 SECONDS (11.6-15.0)
[2017-08-23 23:00] LABS: ALBUMIN 3.3 g/dL (3.4-5.0); ANION GAP 15.4 mmol/L (8-16); BILIRUBIN - TOTAL 0.63 mg/dL (0.2-1.3); CALCIUM 9.4 mg/dL (8.5-10.1); CARBON DIOXIDE 28.1 mmol/L (21.0-32.0); CREATININE - SERUM 1.5 mg/dL (0.6-1.3); POTASSIUM - SERUM 5.5 mmol/L (3.5-5.1); PROTEIN - SERUM 6.6 g/dL (6.4-8.2)
[2017-08-24] VITALS (45 sets, daily range): BP systolic 63–129; BP diastolic 25–78; Ht 160 cm; Wt 70.0 kg
[2017-08-24 04:54] LABS: BASOPHILS 0.2 % (0-2); EOSINOPHILS 0 % (0-7); HEMATOCRIT 28.3 % (36.0-48.0); HEMOGLOBIN 8.8 g/dL (12-16); IMMATURE GRANULOCYTES 0.3 % (0-5); LYMPHOCYTES 22.3 % (15-50); MCHC 31.1 g/dL (31.0-37.0); MCV 93.4 fL (80.0-100.0); MEAN PLATELET VOLUME 9.6 fL (7.4-10.4); MONOCYTES 3.3 % (2-11); NEUTROPHILS 73.9 % (40-80); PLATELET COUNT 328 10x3/uL (130-400); RBC 3.03 10x6/uL (4.00-5.40); RDW 13.9 % (11.5-14.5); WBC 9.4 10x3/uL (4.8-10.8)
[2017-08-24 06:46] LABS: HEMATOCRIT 30.1 % (36.0-48.0)
[2017-08-24 07:27] LABS: HEMOGLOBIN 9.2 g/dL (12-16)
[2017-08-24 07:42] LABS: BASOPHILS 0.2 % (0-2); EOSINOPHILS 0.1 % (0-7); HEMATOCRIT 34.4 % (36.0-48.0); HEMOGLOBIN 10.7 g/dL (12-16); IMMATURE GRANULOCYTES 0.7 % (0-5); LYMPHOCYTES 13.8 % (15-50); MCH 28.9 pg (26.0-34.0); MCHC 31.1 g/dL (31.0-37.0); MEAN PLATELET VOLUME 9.8 fL (7.4-10.4); MONOCYTES 3.8 % (2-11); NEUTROPHILS 81.4 % (40-80); PLATELET COUNT 361 10x3/uL (130-400); RDW 14.7 % (11.5-14.5)
[2017-08-24] MEDS ORDERED: BACLOFEN10 MG PO (07:56)
[2017-08-24 07:57] LABS: ALBUMIN 3.3 g/dL (3.4-5.0); ALKALINE PHOSPHATASE 102 U/L (46-116); BILIRUBIN - TOTAL 0.89 mg/dL (0.2-1.3); CALCIUM 9.7 mg/dL (8.5-10.1); CHLORIDE - SERUM 88 mmol/L (98-107); POTASSIUM - SERUM 5.7 mmol/L (3.5-5.1); PROTEIN - SERUM 7.1 g/dL (6.4-8.2); SODIUM 131 mmol/L (136-145)
[2017-08-24 07:58] LABS: ALT (SGPT) 34 U/L (10-68); CALC OSMOLALITY 294 mosm/kg (275-300); CARBON DIOXIDE 18.8 mmol/L (21.0-32.0); UREA NITROGEN 28 mg/dL (7-18); eGFR NON AFRICAN AMERICAN 26 mL/min (90-120)
[2017-08-24 07:59] LABS: GLUCOSE 573 mg/dL (74-106)
[2017-08-24] MEDS ORDERED: COLACE100 MG PO (07:59)
[2017-08-24] MEDS ORDERED: DEBROX OTIC15 ML RIGHT EAR (08:04)
[2017-08-24 08:09] LABS: APTT 27.9 SECONDS (22.8-39.4); PROTIME 14.5 SECONDS (11.6-15.0)
[2017-08-24 08:10] LABS: CKMB 4.2 U/L (0.0-3.6); CREATINE KINASE 118 UL (21-215)
[2017-08-24 08:12] LABS: TROPONIN-I 0.931 ng/mL (0.000-0.060)
[2017-08-24 08:15] LABS: INR 1.17 (0.85-1.17)
== END 2017-08-24 15:22 | DRG 377 ==
LOC: D.ER 22:01 → D.EDHOLD 08-24 00:45 → D.ICU 08-24 00:45
PROVIDERS: Family Medicine
DX: K92.2 Gastrointestinal hemorrhage, unspecified (principal); R57.1 Hypovolemic shock; I42.9 Cardiomyopathy, unspecified; E10.43 Type 1 diabetes mellitus with diabetic autonomic (poly)neuropathy; K31.84 Gastroparesis; Z96.41 Presence of insulin pump (external) (internal); Z79.4 Long term (current) use of insulin; E03.9 Hypothyroidism, unspecified; K21.9 Gastro-esophageal reflux disease without esophagitis; Z66 Do not resuscitate; D64.9 Anemia, unspecified; E87.8 Other disorders of electrolyte and fluid balance, not elsewhere classified; G89.29 Other chronic pain; M54.9 Dorsalgia, unspecified; I95.9 Hypotension, unspecified; E10.65 Type 1 diabetes mellitus with hyperglycemia; Z95.1 Presence of aortocoronary bypass graft; Z95.5 Presence of coronary angioplasty implant and graft

== ENCOUNTER 2017-08-24 14:41 | Inpatient (IN) | payer OTHER ==
[~2017-08-24] VITALS: Ht 160 cm; Wt 75.0 kg
[~2017-08-24 14:41] MED LIST changes: +BACLOFEN10 MG PO; +COLACE100 MG PO; +DEBROX OTIC15 ML RIGHT EAR
[2017-08-24 14:44] VITALS: BP 105/52; Ht 160 cm; Wt 75.0 kg
[2017-08-24 15:30] VITALS: BP 105/52
[2017-08-24 16:00] VITALS: BP 65/38
[2017-08-24 20:00] VITALS: BP 77/39
[2017-08-25 08:56] VITALS: BP 75/20
[2017-08-25 17:17] VITALS: BP 83/41
== END 2017-08-25 23:51 | DRG 951 ==
LOC: D.ICU 14:41 → D.SDCHOLD 14:41 → D.ICU 15:23 → D.MS 19:30
DX: Z51.5 Encounter for palliative care (principal)